=== PATIENT | female | born 1985 | race Caucasian/White ===

== ENCOUNTER 2018-01-03 12:32 | Emergency (ER) | payer OTHER ==
[2018-01-03] MEDS ORDERED: HYDROcod/ACETAM 5/325 MG TABLET PO STA (13:34)
--- NOTE | 2018-01-03 13:35 | ED Physician Documentation ---
History of Present Illness - Stated complaint Stated Complaint: PELVIC PX - Chief complaint Chief Complaint: Abd Pain - History obtained from History obtained from: Patient - History of Present Illness Timing: How many weeks ago (2) Pain level max: 8 Pain level now: 8 Improved by: nothing Worsened by: nothing - Additonal information Additional information: Patient is a 32-year-old female who presents to the emergency department with left lower pelvic pain 2 weeks. Saw her PCP and was referred for outpatient ultrasound, but the pain is now worsened. She has not taken anything for pain today. Has had irregular menses for most of her life and is currently on her menses. She is not on any control pills. Not currently sexually active. No change in sexual partners. No vaginal discharge. No itching. Review of Systems Constitutional: denies: Fever, Chills Respiratory: denies: Cough GI: denies: Abdominal Pain, Nausea, Vomiting, Diarrhea Skin: denies: Rash Musculoskeletal: denies: Neck pain, Back pain Neurologic: denies: Headache PD PAST MEDICAL HISTORY - Past Medical History Past Medical History: No - Past Surgical History Past Surgical History: No - Present Medications Home Medications: Ambulatory Orders Medication Instructions Recorded Confirmed Dextroamphetamine/Amphetamine 1 cap PO DAILY 03/15/16 [Adderall Xr 25 mg Capsule] Cetirizine [ZyrTEC] 1 tab PO DAILY 01/03/18 01/03/18 Hydrocodone/Acetaminophen 1 - 2 each PO Q6H PRN #12 tablet 01/03/18 [Hydrocodon-Acetaminophen 5-325] traZODone [Desyrel] 1 tab PO DAILY 01/03/18 01/03/18 - Allergies Allergies/Adverse Reactions: Allergies Allergy/AdvReac Type Severity Reaction Status Date / Time No Known Drug Allergies Allergy Verified 01/03/18 12:46 - Social History Does the pt smoke?: No Smoking Status: Never smoker Does the pt have substance abuse?: No PD ED PE NORMAL - Vitals Vital signs reviewed: Yes - General General: Alert and oriented X 3, No acute distress, Well developed/nourished - HEENT HEENT: Moist mucous membranes - Neck Neck: Supple, no meningeal sign - Cardiac Cardiac: RRR, Strong equal pulses - Respiratory Respiratory: No respiratory distress, Clear bilaterally - Abdomen Abdomen: Soft, Non distended, Other (mild TTP LLQ. no peritoneal signs) - Female Female : Pt declined (states will follow up with PCP for this) - Back Back: No CVA TTP, No spinal TTP - Derm Derm: Warm and dry - Extremities Extremities: No edema, No calf tenderness / cord - Neuro Neuro: Alert and oriented X 3 - Psych Psych: Normal mood, Normal affect Results - Vitals Vitals: Vital Signs - 24 hr 01/03/18 01/03/18 01/03/18 12:41 15:04 17:18 Temperature 36.6 C 36.1 C L Heart Rate 104 H 88 95 Respiratory 16 16 18 Rate Blood Pressure 119/74 135/81 H 128/85 H O2 Saturation 99 100 100 Oxygen O2 Source Room air - Labs Labs: Laboratory Tests 01/03/18 01/03/18 13:26 13:26 Urine Color YELLOW Urine Clarity CLEAR Urine pH 6.0 Ur Specific [place] <=1.005 <=1.005 Urine Protein NEGATIVE Urine Glucose (UA) NEGATIVE Urine Ketones NEGATIVE Urine Occult Blood NEGATIVE Urine Nitrite NEGATIVE Urine Bilirubin NEGATIVE Urine Urobilinogen 0.2 (NORMAL) Ur Leukocyte Esterase NEGATIVE Ur Microscopic Review NOT INDICATED Urine Culture Comments NOT INDICATED Urine HCG, Qual NEGATIVE - Rads (name of study) pelvic US Radiology: Prelim report reviewed, EMP read contemporaneously, See rad report ( Uterus and endometrium are within normal limits. Uterine device is in expected position. Ovaries are normal in size and vascularity. There are several small simple appearing ovarian cysts.) PD MEDICAL DECISION MAKING - ED course Complexity details: reviewed results, re-evaluated patient, considered differential, d/w patient ED course: Patient is a 32-year-old female with left lower quadrant pelvic pain. Multiple small cysts on ultrasound. Possible polycystic ovarian syndrome? Will have her follow-up with her doctor for further care. No evidence of torsion. No evidence of hemorrhagic cyst. No free fluid. No ectopic . Will place on a small amount of pain medication and follow-up closely with her doctor. Patient counseled regarding signs and symptoms for which I believe and urgent re-evaluation would be necessary. Patient with good understanding of and agreement to plan and is comfortable going home at this time This document was made in part using voice recognition software. While efforts are made to proofread this document, sound alike and grammatical errors may occur. Departure - Departure Disposition: 01 Home, Self Care Clinical Impression: Ovarian cyst Qualifiers: Laterality: bilateral Qualified Code(s): N83.201 - Unspecified ovarian cyst, right side Condition: Good Instructions: ED Cyst Ovarian Follow-Up: PAOLA PEPE [Primary Care Provider] - Within 1 week Prescriptions: Hydrocodone/Acetaminophen [Hydrocodon-Acetaminophen 5-325] 1 - 2 each PO Q6H PRN #12 tablet PRN Reason: pain Comments: You have several cysts on her ovaries. You should have a repeat ultrasound in approximately 6 weeks with your doctor. Return if you worsen. Do not drink alcohol or drive while on narcotic pain medicine. Note that many narcotic pain relievers also contain tylenol/acetaminophen. Please ensure that your total dose of acetaminophen from all sources does not exceed 3 grams (3000mg) per day. You may constipated on this medication, take a stool softener such as "Colace" twice a day while you are on it. Also recommend a [id number] laxative such as senna or MiraLAX any day that you do not have a bowel movement. If you received narcotic pain medication in the emergency department, do not drive or operate machinery for the next 24 hours. Discharge Date/Time: 01/03/18 17:23
[2018-01-03 13:39] LABS: BILIRUBIN,URINE NEGATIVE (NEGATIVE); GLUCOSE, URINE (UA) NEGATIVE (NEGATIVE); KETONES,URINE (UA) NEGATIVE (NEGATIVE); LEUKOCYTE ESTERASE, URINE NEGATIVE (NEGATIVE); NITRITE,URINE NEGATIVE (NEGATIVE); OCCULT BLOOD,URINE NEGATIVE (NEGATIVE); PROTEIN,URINE NEGATIVE (NEGATIVE); UROBILINOGEN,URINE 0.2 (NORMAL) E.U./dL (NORMAL)
[2018-01-03 13:42] LABS: CLARITY,URINE CLEAR (CLEAR)
[2018-01-03 13:44] LABS: HCG UR QUAL NEGATIVE
--- NOTE | 2018-01-03 16:51 | Ultrasound Report ---
EXAM: PELVIC ULTRASOUND EXAM DATE: 01/03/2018 04:31 PM. CLINICAL HISTORY: Left pelvic pain COMPARISON: None. TECHNIQUE: Realtime transabdominal pelvic scan performed to identify the uterus and adnexa and as an overview of other pelvic structures, followed by transvaginal scan to provide greater detail of the u terus and adnexa, with static image documentation. FINDINGS: Uterus: 8.3 x 4.2 x 3.2 cm, volume 58 cc. Anteverted position. Normal overall size and echotexture. Masses: None. Endometrium: 3 mm. Normal. Cervix: Unremarkable. Right Ovary: 2.9 x 2.9 x 2.9 cm, volume 13 cc. Normal echotexture and blood flow. There is a simple a ppearing cyst. Left Ovary: 3.2 x 3.0 x 2.2 cm, volume 11 cc. Normal echotexture and blood flow. There are several si mple appearing cysts. Free Fluid: None. Other: None. IMPRESSION: 1. Uterus and endometrium are within normal limits. Uterine device is in expected position. 2. Ovaries are normal in size and vascularity. There are several small simple appearing ovarian cysts . [facility] Referring Provider Line: [phone] SITE ID: [id number]
[2018-01-03 17:19] VITALS: BP 128/85
== END 2018-01-03 17:23 | disposition home or self-care (01) ==
LOC: ED 12:32
DX: N83.201 Unspecified ovarian cyst, right side (principal)
CPT/HCPCS: 76830; 76856; 81003; 81025; 93976; 99283; A9270; 81001; 87086